=== PATIENT | male | born 1995 | race Two or more races ===

== ENCOUNTER 2021-08-04 11:05 | Emergency (ER) | payer MEDICAID ==
[~2021-08-04] VITALS: Ht 167.6 cm; Wt 54.4 kg
[2021-08-04 14:46] VITALS: BP 149/71
== END 2021-08-04 15:12 | disposition home or self-care (01) ==
LOC: ER 11:05
DX: S23.41XA Sprain of ribs, initial encounter (principal); Z90.49 Acquired absence of other specified parts of digestive tract; W18.39XA Other fall on same level, initial encounter; Y93.89 Activity, other specified; Y92.89 Other specified places as the place of occurrence of the external cause; Y99.8 Other external cause status
CPT/HCPCS: 71101